=== PATIENT | male | born 1950 | race Caucasian/White ===

== ENCOUNTER 2023-04-08 09:45 | Inpatient (IN) | payer MEDICARE, BC ==
[2023-04-05 14:58] LABS: BASOPHILS % (AUTO) 0.2 % (0-1); BILIRUBIN,URINE NEGATIVE (Neg); CLARITY,URINE CLEAR (Clear); COLOR,URINE YELLOW (Yellow); EOSINOPHILS # (AUTO) 0.2 X10'3 (0-0.9); EOSINOPHILS % (AUTO) 2.3 % (0-6); GLUCOSE, URINE NEGATIVE (Neg); KETONES,URINE NEGATIVE (Neg); LEUKOCYTE ESTERASE ,URINE NEGATIVE (Neg); LYMPHOCYTES # (AUTO) 1.9 X10'3 (1.1-4.8); LYMPHOCYTES % (AUTO) 25.1 % (21-51); MEAN CORPUSCULAR HEMOGLOBIN 33.4 PG (27.0-31.0); MEAN CORPUSCULAR VOLUME 98.2 FL (78-98); MEAN PLATELET VOLUME 7.2 FL (7.4-10.4); MONOCYTES # (AUTO) 0.8 X10'3 (0-0.9); MONOCYTES % (AUTO) 11.2 % (2-12); NEUTROPHILS # (AUTO) 4.5 X10'3 (1.8-7.7); NEUTROPHILS % (AUTO) 61.2 % (42-75); NITRITES, URINE NEGATIVE (Neg); OCCULT BLOOD,URINE NEGATIVE (Neg); PRE OP HEMATOCRIT 47.2 % (42.0-52.0); PRE OP PLATELET COUNT 196 X10'3 (140-440); PRE OP WHITE BLOOD COUNT 7.4 10'3 (4.8-10.8); PROTEIN,URINE NEGATIVE (Neg); RED BLOOD COUNT 4.81 X10'6 (4.70-6.10)
[2023-04-05 15:01] LABS: UA COLLECTION TYPE CLN CATCH MIDSTREAM
[2023-04-05 15:11] LABS: PRE OP INR 1.1 INR; PRE OP PROTIME 11.4 SECONDS (9.0-12.0)
[2023-04-05 15:19] LABS: ALBUMIN 3.9 G/DL (3.4-5.0); ALBUMIN/GLOBULIN RATIO 1.2 (1.1-1.5); ALKALINE PHOSPHATASE 62 IU/L (46-116); BLOOD UREA NITROGEN 8 MG/DL (7-18); CALCIUM 8.6 MG/DL (8.5-10.1); CHLORIDE 102 MMOL/L (99-107); CREATININE 0.89 MG/DL (0.60-1.10); PRE OP ALT 46 U/L (30-65); PRE OP ANION GAP 7 (8-16); PRE OP AST 41 U/L (10-37); PRE OP BILIRUB, TOTAL 1.1 MG/DL (0.0-1.0); PRE OP GLUCOSE 111 MG/DL (70-104); PRE OP POTASSIUM 3.9 MMOL/L (3.4-5.1); PRE OP SODIUM 137 MMOL/L (135-145); TOTAL CARBON DIOXIDE 27.7 MMOL/L (24-32); TOTAL PROTEIN 7.2 G/DL (6.4-8.2); eGFR 84 ML/MIN
[2023-04-05 15:20] LABS: THYROID STIMULATING HORMONE 0.18 ulU/ml (0.34-4.50)
[~2023-04-08] VITALS: Ht 180.3 cm; Wt 106.4 kg
[2023-04-08] VITALS (20 sets, daily range): BP systolic 109–160; BP diastolic 44–103; PULSE 72–102; RESP 12–21; TEMP 98.1–99.1; O2SAT 90–96
[~2023-04-08 09:45] MED LIST: ALBU6.7H14 INH; GABA600T13 PO; LEVO175T2 PO; PSYL0.4C2 PO; TEST200V33 IM; cefazolin 2gm/D5W 100mL 100 ML IV ONE; famotidine 20mg tablet PO ONE; ringers solution, lacted 1,000 ML IV SCH; tranexamic acid inj. 1,000 MG in normal saline IV soln 100ML IV ONE
[2023-04-08] MEDS ORDERED: vancomycin 1,000mg inj ONE (12:34)
[2023-04-08] MEDS ORDERED: midazolam 1 mg/ML 2ml injection ONE (12:39)
[2023-04-08] MEDS ORDERED: naloxone 0.4 mg/ml inj IV PRN (12:40)
[2023-04-08] MEDS ORDERED: acetaminophen 325mg tablet PO PRN (12:40)
[2023-04-08] MEDS ORDERED: magnesium hydroxide 30ml (MOM) UD suspension PO PRN (12:40)
[2023-04-08] MEDS ORDERED: fentaNYL /PF 50mcg/ml 5ml ampule ONE (12:40)
[2023-04-08] MEDS ORDERED: bisacodyl 10mg suppository rectal RC PRN (12:40)
[2023-04-08] MEDS ORDERED: HYDROcodone/acetaminophen 10/325mg tab PO PRN (12:40)
[2023-04-08] MEDS ORDERED: diphenhydrAMINE 25mg capsule PO PRN (12:40)
[2023-04-08] MEDS ORDERED: ondansetron/PF 4mg/2ml inj IV PRN ×2 (12:40→15:20)
[2023-04-08] MEDS ORDERED: sevoflurane 250ml liquid IH ONE (12:47)
--- NOTE | 2023-04-08 13:04 | NUR ---
CSM NOTE; PT STATES HE SHOWERED WITH HIBICLENS X5 DAYS. MUPIROCIN OINTMENT NOT ORDERED. PT HAS PALPABLE BILAT RADIAL PULSES PRESENT. PT DID READ BOOKLET. PT EDUCATED ON USE OF IS AND RETURNS DEMONSTRATION PERFORMED.
[2023-04-08] MEDS ORDERED: 0.9 % SODIUM CHLORIDE 10 ML VIAL ONE (13:27)
[2023-04-08] MEDS ORDERED: ondansetron/PF 4mg/2ml inj ONE (13:27)
[2023-04-08] MEDS ORDERED: LIDOcaine 2% (20mg/ml) 5ml vial ONE (13:27)
[2023-04-08] MEDS ORDERED: ROPIVAcaine 0.5% (5mg/ml) 30ml vial ONE (13:27)
[2023-04-08] MEDS ORDERED: rocuronium 10mg/ml inj IV ONE (13:27)
[2023-04-08] MEDS ORDERED: propofol inj 20 ML IV ONE (13:27)
[2023-04-08] MEDS ORDERED: dexamethasone sod phosphate 4mg/ml inj. ONE (13:27)
[2023-04-08] MEDS ORDERED: ePHEDrine 50MG/ML INJ. ONE (13:27)
[2023-04-08] MEDS ORDERED: hydrALAZINE 20mg/ml inj. IV PRN (15:20)
[2023-04-08] MEDS ORDERED: ketorolac tromethamine 15mg/ml inj. IV ONE (15:20)
[2023-04-08] MEDS ORDERED: acetaminophen 1,000mg/100ml IV 100 ML IV PRN (15:20)
[2023-04-08] MEDS ORDERED: meperidine/PF 25mg/ml syringe IV PRN ×3 (15:20)
[2023-04-08] MEDS ORDERED: ringers solution, lacted 1,000 ML IV SCH (15:20)
[2023-04-08] MEDS ORDERED: proCHLORperazine 10 MG/2 ml inj IV PRN (15:20)
[2023-04-08] MEDS ORDERED: morphine 2 MG/ML inj. syringe IV PRN (15:20)
[2023-04-08] MEDS ORDERED: morphine 4 MG/ML inj SYRINge IV PRN (15:20)
[2023-04-08] MEDS ORDERED: labetalol 20mg/4ml (5mg/ml) syringe IV PRN (15:20)
[2023-04-08] MEDS ORDERED: morphine 4 MG/ML inj SYRINge IV ONE (15:50)
[2023-04-08] MEDS ORDERED: neostigmine methylsulfate 1 MG/ML 10ml vial ONE (15:50)
[2023-04-08] MEDS ORDERED: glycopyrrolate 0.2mg/ml inj ONE (15:50)
--- NOTE | 2023-04-08 16:01 | NUR ---
Received from OR via [facility] BED TO RR [facility], accompanied by Anesthesiologist JONES and report given by Anesthesiolgist. PT PRESENTS WITH 20G RIGHT FOREARM, LEFT SHOULD WRAP WITH POWDER PACK AND SLING CDI, SPO2 95% 10L MASK, BILATERAL RADIAL PULSE STRONG, VSS. XRAY AT BEDSIDE. Addendum: 04/08/23 at 1705 by Maria Teresa Meeks RN, RN Amended: Links added.
[2023-04-08] MEDS ORDERED: ipratropium/albuterol 3ml nebule NEB PRN (16:05)
--- NOTE | 2023-04-08 17:01 | NUR ---
Report called to receiving nurse JAVIER ORTA. Transferred via [facility] BED TO ROOM 4012A WITH PT'S . BED IN LOW LOCKED POSITION WITH CALL LIGHT IN REACH, PT HOOKED UP TO BEDSUDE MONITOR. PT WENT TO ROOM WITH PT GLASSES AND PT'S HAS PT BELONGINGS. Special Issues communicated to receiving nurse. Addendum: 04/08/23 at 1705 by Maria Teresa Meeks RN, RN Amended: Links added.
[2023-04-08] MEDS: potassium cl 20mEq in 1/2 NS 1,000 ML IV SCH (17:11)
--- NOTE | 2023-04-08 18:23 | NUR ---
Problems reprioritized. Patient report given, questions answered & plan of care reviewed with ESSENCE Good.
[2023-04-08] MEDS: PSYLLIUM HUSK 0.4 GM PO SCH (20:00)
[2023-04-08] MEDS: gabapentin 300mg capsule PO SCH (20:29)
[2023-04-08] MEDS: cefazolin 2gm/D5W 100mL 100 ML IV SCH (21:07)
--- NOTE | 2023-04-08 22:22 | NUR ---
focused nurse practitioner home assessments. left shoulder arthroplasty. dressing island CDI, sling, shoulder wrap and ice intact. pulses intact. sensation only to fingers with tingling. able to move fingers and wrist. up to bathroom to void. a/o x4. all other systems normal. pt watching movie on tablet. IV intact. scds. uses IS
[2023-04-09] MEDS: potassium cl 20mEq in 1/2 NS 1,000 ML IV SCH (02:00)
[2023-04-09 04:00] VITALS: BP 139/79; PULSE 91; RESP 18; TEMP 97.4; O2SAT 93
[2023-04-09] MEDS: HYDROcodone/acetaminophen 10/325mg tab PO PRN ×2 (05:18→10:54)
[2023-04-09] MEDS: cefazolin 2gm/D5W 100mL 100 ML IV SCH (05:20)
[2023-04-09 06:00] VITALS: BP 138/81; PULSE 78; RESP 18; TEMP 97.9; O2SAT 96
--- NOTE | 2023-04-09 06:30 | NUR ---
Patient in room ORTHO 4012. I have received report from ESSENCE Good and had the opportunity to ask questions and assume patient care.
[2023-04-09 06:54] LABS: BASOPHILS % (AUTO) 0.2 % (0-1); EOSINOPHILS % (AUTO) 0 % (0-6); HEMATOCRIT 45.7 % (42.0-52.0); HEMOGLOBIN 15.5 g/dl (14.0-17.9); LYMPHOCYTES % (AUTO) 8.7 % (21-51); MEAN CORPUSCULAR HEMOGLOBIN 33.4 PG (27.0-31.0); MEAN CORPUSCULAR VOLUME 98.2 FL (78-98); MEAN PLATELET VOLUME 6.9 FL (7.4-10.4); MONOCYTES # (AUTO) 1.3 X10'3 (0-0.9); MONOCYTES % (AUTO) 11.5 % (2-12); NEUTROPHILS # (AUTO) 9.3 X10'3 (1.8-7.7); NEUTROPHILS % (AUTO) 79.6 % (42-75); PLATELET COUNT 210 X10'3 (140-440); RED BLOOD COUNT 4.65 X10'6 (4.70-6.10); RED CELL DISTRIBUTION WIDTH 13.6 % (11.5-14.5); WHITE BLOOD COUNT 11.7 X10'3 (4.5-11.0)
[2023-04-09] MEDS ORDERED: levoTHYROXINE 175mcg tablet PO SCH (07:00)
[2023-04-09 07:11] LABS: ANION GAP 8 (8-16); CHLORIDE 100 MMOL/L (99-107); POTASSIUM 4.2 MMOL/L (3.5-5.1); SODIUM 134 MMOL/L (135-145); TOTAL CARBON DIOXIDE 26.5 MMOL/L (24-32)
[2023-04-09] MEDS: gabapentin 300mg capsule PO SCH (07:49)
[2023-04-09 08:00] VITALS: RESP 18; O2SAT 96
[2023-04-09] MEDS: PSYLLIUM HUSK 0.4 GM PO SCH (08:00)
[2023-04-09] MEDS ORDERED: albuterol 2.5 MG/3 ML nebule NEB PRN (08:00)
[2023-04-09] MEDS ORDERED: aspirin 325mg tablet PO SCH (08:30)
--- NOTE | 2023-04-09 09:46 | NUR ---
Per EMR pt POD #1 s/p reverse left TSA, pending discharge at this time. Written high protein education with ONS coupons and RD contact information mailed to patient's address found in EMR. Will continue to follow. Addendum: 04/09/23 at [address] Amended: Links added.
[2023-04-09 10:54] VITALS: RESP 16
[2023-04-09] MEDS ORDERED: ASPI-1 PO (11:41)
--- NOTE | 2023-04-09 12:33 | NUR ---
pt stable for d.c. Patient signed all d/c paperwork. IV discontinued prior to d/c. patient left with all personal belongings. present at time of d/c. patient was wheeled out with the assistance of one staff member to lobby and got into lobby to go home. D/c @ [id number].
[2023-04-10] MEDS ORDERED: TESTOSTERONE CYPIONATE 200 MG/ML VIAL IM SCH (08:00)
== END 2023-04-09 12:24 | disposition home or self-care (01) | DRG 483 ==
LOC: PAS IN 11:01 → ORTHO 4S 17:02
PROVIDERS: ADMIT Specialist; ATTEND Specialist
PROC: 0LS40ZZ Reposition Left Upper Arm Tendon, Open Approach (ICD-10-PCS; 2023-04-08)
PROC: 0RRK00Z Replacement of Left Shoulder Joint with Reverse Ball and Socket Synthetic Substitute, Open Approach (ICD-10-PCS; principal; 2023-04-08 12:47)
DX: M19.012 Primary osteoarthritis, left shoulder (principal); M75.112 Incomplete rotator cuff tear or rupture of left shoulder, not specified as traumatic; E89.0 Postprocedural hypothyroidism; Z79.899 Other long term (current) drug therapy
CPT/HCPCS: 36415; 73030; 76000; 80051; 80053; 81003; 82948; 84443; 85025; 85610; 85730; 87081; 94760; 97161; 97530; A4565; A4615; A4618; A6449; A6455; A7000; C1776; G0378; J0131; J0690; J1100; J2250; J2270; J2405; J2704; J2710; J2795; J3010; J3370; J3480; J3490; J7120